=== PATIENT | female | born 1990 | race Hispanic/Latino ===

== ENCOUNTER 2024-06-26 22:13 | Emergency (ER) | payer OTHER ==
[~2024-06-26] VITALS: Ht 152.4 cm; Wt 55.3 kg
--- NOTE | 2024-06-26 22:18 | NUR ---
UA CUP PROVIDED
[2024-06-26 22:50] LABS: BASOPHILS # (AUTO) 0.03 K/uL (0.00-0.20); BASOPHILS % (AUTO) 0.5 % (0.0-5.0); EOSINOPHILS # (AUTO) 0.11 K/uL (0.00-0.70); EOSINOPHILS % (AUTO) 1.8 % (0.0-8.0); HEMATOCRIT 41.6 % (36-48); IMMATURE GRANULOCYTE ABSOLUTE 0.02 K/uL (0-1); LYMPHOCYTES # (AUTO) 2.1 K/uL (1.0-4.8); LYMPHOCYTES % (AUTO) 33.2 % (21.0-51.0); MEAN CORPUSCULAR HEMOGLOBIN 30.7 pg (27.0-33.0); MEAN CORPUSCULAR HGB CONC 34.4 g/dL (32.0-36.0); MEAN CORPUSCULAR VOLUME 89.3 fL (79-99); MONOCYTES # (AUTO) 0.4 K/uL (0.1-1.0); MONOCYTES % (AUTO) 6.6 % (3.0-13.0); NEUTROPHILS # (AUTO) 3.6 K/uL (1.8-7.7); NEUTROPHILS % (AUTO) 57.6 % (40.0-77.0); PLATELET COUNT (AUTO) 217 K/uL (130-400); RED BLOOD CELL COUNT(AUTO) 4.66 MIL/uL (4.00-5.50); RED CELL DISTRIBUTION WIDTH 13.4 % (11.0-15.5); WHITE BLOOD COUNT (AUTO) 6.2 K/uL (4.8-10.8)
[2024-06-26 23:04] LABS: ALBUMIN 3.5 g/dL (3.5-5.0); APPEARANCE,URINE CLEAR (CLEAR); BILIRUBIN,DIRECT 0.1 mg/dL (0.0-0.3); BILIRUBIN,TOTAL 0.5 mg/dL (0.2-1.0); BILIRUBIN,URINE NEGATIVE (NEGATIVE); COLOR,URINE COLORLESS (YELLOW); CREATININE 0.6 mg/dL (0.5-1.0); GLUCOSE, URINE (UA) NEGATIVE (NEGATIVE); KETONES,URINE NEGATIVE (NEGATIVE); LEUKOCYTE ESTERASE ,URINE NEGATIVE Leu/uL (NEGATIVE); NITRATE,URINE NEGATIVE (NEGATIVE); OCCULT BLOOD,URINE NEGATIVE (NEGATIVE); PH,URINE 7.5 (5.0-8.0); PROTEIN,URINE NEGATIVE (NEGATIVE); TOTAL PROTEIN, SERUM 7.1 g/dL (6.0-8.3); UROBILINOGEN,URINE 0.2 mg/dL (0.2-1.0)
[2024-06-26 23:06] LABS: ADD UA MICROSCOPIC NO
[2024-06-27 00:27] VITALS: BP 120/80; PULSE 70; RESP 20; TEMP 98.7; O2SAT 100
--- NOTE | 2024-06-27 00:32 | ERN ---
General Chief Complaint: Flank Pain Stated Complaint: RT FLANK PAIN Time Seen by MD: 22:16 History of Present Illness Allergies: Coded Allergies: No Known Allergies (Unverified Allergy, Unknown, 06/26/24) Past Medical History Past Medical History: No Pertinent History Past Surgical History: None Female( History) LMP: Jun 22, 2024 Results Laboratory and Microbiology Lab and Micro Result Laboratory Tests Test 06/26/24 22:36 White Blood Count 6.2 K/uL (4.8-10.8) Red Blood Count 4.66 MIL/uL (4.00-5.50) Hemoglobin 14.3 g/dL (12.0-16.0) Hematocrit 41.6 % (36-48) Mean Corpuscular Volume 89.3 fL (79-99) Mean Corpuscular Hemoglobin 30.7 pg (27.0-33.0) Mean Corpuscular Hemoglobin Concent 34.4 g/dL (32.0-36.0) Red Cell Distribution Width 13.4 % (11.0-15.5) Platelet Count 217 K/uL (130-400) Mean Platelet Volume 10.0 fL (7.5-10.5) Immature Granulocyte % (Auto) 0.3 % (0-1) Neutrophils (%) (Auto) 57.6 % (40.0-77.0) Lymphocytes (%) (Auto) 33.2 % (21.0-51.0) Monocytes (%) (Auto) 6.6 % (3.0-13.0) Eosinophils (%) (Auto) 1.8 % (0.0-8.0) Basophils (%) (Auto) 0.5 % (0.0-5.0) Neutrophils # (Auto) 3.6 K/uL (1.8-7.7) Lymphocytes # (Auto) 2.1 K/uL (1.0-4.8) Monocytes # (Auto) 0.4 K/uL (0.1-1.0) Eosinophils # (Auto) 0.11 K/uL (0.00-0.70) Basophils # (Auto) 0.03 K/uL (0.00-0.20) Absolute Immature Granulocyte (auto 0.02 K/uL (0-1) Nucleated Red Blood Cells 0.0 % (0.0-0.19) Urine Color COLORLESS (YELLOW) Urine Appearance CLEAR (CLEAR) Urine pH 7.5 (5.0-8.0) Urine Specific [place] 1.012 (1.001-1.031) Urine Protein NEGATIVE mg/dL (NEGATIVE) Urine Glucose (UA) NEGATIVE mg/dL (NEGATIVE) Urine Ketones NEGATIVE mg/dL (NEGATIVE) Urine Occult Blood NEGATIVE (NEGATIVE) Urine Nitrate NEGATIVE (NEGATIVE) Urine Bilirubin NEGATIVE mg/dL (NEGATIVE) Urine Urobilinogen 0.2 mg/dL (0.2-1.0) Urine Leukocyte Esterase NEGATIVE Gabriel/uL Sodium Level 141 mmol/L (136-145) Potassium Level 4.0 mmol/L (3.5-5.1) Chloride Level 104 mmol/L (101-111) Carbon Dioxide Level 31 mmol/L (21-32) Blood Urea Nitrogen 12 mg/dL (7-18) Creatinine 0.6 mg/dL (0.5-1.0) Glomerular Filtration Rate Calc 122 mL/min (>90) Random Glucose 94 mg/dL (70-105) Total Calcium 8.9 mg/dL (8.5-10.1) Total Bilirubin 0.5 mg/dL (0.2-1.0) Direct Bilirubin 0.1 mg/dL (0.0-0.3) Aspartate Amino Transf (AST/SGOT) 14 U/L (10-37) Alanine Aminotransferase (ALT/SGPT) 14 U/L (12-78) Alkaline Phosphatase 63 U/L (50-136) Total Protein 7.1 g/dL (6.0-8.3) Albumin 3.5 g/dL (3.5-5.0) Lipase 51 U/L (16-77) Serum Test, Qualitative NEGATIVE (NEGATIVE) ED Course Orders Procedure Category Date Status Time Cbc With Differential LAB 06/26/24 Complete 22:38 Basic Metabolic Panel LAB 06/26/24 Complete 22:38 Testing, LAB 06/26/24 Complete Serum Hcg 22:38 Urinalysis Profile LAB 06/26/24 Complete 22:38 Hepatic Function Panel LAB 06/26/24 Complete 22:38 Lipase LAB 06/26/24 Complete 22:38 Us Abdominal Ruq\Ltd US 06/26/24 Taken 23:03 Vital Signs Date Time Temp Pulse Resp B/P (MAP) Pulse Ox O2 Delivery O2 Flow Rate FiO2 06/26/24 22:38 98.8 74 20 125/88 100 Room Air* 0 21 06/26/24 22:15 98.2 81 16 160/89 99 Room Air DX & DISP Disposition: Discharge Departure Impression: Primary Impression: Cholelithiasis Condition: Stable Additional Instructions: Your blood work today is unremarkable. Your electrolytes are normal. Your liver function tests are normal. Your lipase was normal. No evidence of pancreatitis. Your ultrasound reveals gallstones but no evidence of an infection of your gallbladder. No need for emergent intervention at this time. You need to follow up with either your primary care doctor or a general surgeon outpatient for further evaluation. Time of Disposition: 00:31 I have reviewed the case, and I agree with, Diagnosis and Plan I performed the substantive portion of the visit. I have reviewed and personally made and approve the management plan that is documented in the note by myself or the PAUL. I acknowledge for responsibility for the patient's management plan. CHARLEE VERNON Jun 27, 2024 00:32
--- NOTE | 2024-06-27 09:31 | HMCIMG ---
ULTRASOUND ABDOMEN LIMITED INDICATION: Right upper abdominal pain COMPARISON: None FINDINGS: The liver is normal in size and slightly increased in echogenicity; no focal lesion demonstrated. Main portal vein is patent, and normal direction of vascular flow demonstrated. The common bile duct diameter measures 3.0 mm. Multiple large echogenic shadowing stones within the gallbladder lumen without associated pericholecystic fluid. 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 Wall thickness measures 3.0 mm. Visible portions of the pancreas appear normal. The right kidney measures 10.5 x 4.1 x 4.9 cm,and is normal in echogenicity. No shadowing stones demonstrated. Mild normal variant right renal pelvic caliectasis or mild hydronephrosis. No free fluid demonstrated. IMPRESSION: Cholelithiasis without definite cholecystitis. If clinical suspicion persists, further evaluation with nuclear medicine hepatobiliary scan is recommended. Findings suggesting mild hepatic steatosis. Mild normal variant right renal pelvic caliectasis or mild hydronephrosis.
== END 2024-06-27 00:36 | disposition home or self-care (01) ==
LOC: EDH 22:13
DX: K80.20 Calculus of gallbladder without cholecystitis without obstruction (principal)
CPT/HCPCS: 36415; 76705; 80048; 80076; 81003; 83690; 84703; 85025; 99284